=== PATIENT | female | born 1955 | race Caucasian/White ===

== ENCOUNTER 2019-09-02 06:44 | Day surgery (SDC) | payer OTHER ==
[2019-08-30 15:44] VITALS: BMI 29.2
[2019-09-02 09:42] VITALS: TEMP 97.9
[2019-09-02 14:59] VITALS: BP 117/57; PULSE 57
--- NOTE | 2019-09-03 18:41 | PATH ---
Surgical Pathology Report Patient Name: JAKUB SHEPHERD [facility]. Rec. #: [id number] /Age/Gender: 1955 (Age: 64) / F Account: [id number] Location: [facility]-ENDOSCOPY Taken: 09/02/2019 Received: 09/02/2019 Reported: 09/03/2019 Physicians: Yessica Stark M.D. Specimen(s) Received A: #1 POLYP CECUM B: #2 POLYP DISTAL ASCENDING COLON C: #3 POLYP SIGMOID Clinical History Adenoma surveillance Postoperative diagnosis: Colon polyps, diverticulosis Final Diagnosis A. #1 POLYP, CECUM, POLYPECTOMY: HYPERPLASTIC POLYP B. #2 POLYP, DISTAL ASCENDING COLON, POLYPECTOMY: TUBULAR ADENOMA. C. #3 POLYP, SIGMOID, POLYPECTOMY: TUBULAR ADENOMA. Electronically Signed Mikki Ledezma M.D. Gross Description A. Received in formalin, labeled "polyp cecum" are 3 porras, irregular portions of soft tissue ranging from 0.3-1.0 cm. in greatest dimension. The specimens are submitted in toto in one cassette. B. Received in formalin, labeled "polyp ascending distal" are 2 porras, irregular portions of soft tissue measuring 0.2 and 0.5 cm. in greatest dimension. The specimens are submitted in toto in one cassette. C. Received in formalin, labeled "polyp sigmoid" is a porras, irregular portion of soft tissue measuring 0.4 cm. in greatest dimension. The specimen is submitted in toto in one cassette. 09/02/2019 saudi09/02/2019
== END 2019-09-02 10:36 | disposition home or self-care (01) ==
LOC: JASU-ENDO 06:44
PROVIDERS: ATTEND Internal Medicine Gastroenterology
PROC: 0DBN8ZX Excision of Sigmoid Colon, Via Natural or Artificial Opening Endoscopic, Diagnostic (ICD-10-PCS; 2019-09-02)
PROC: 0DBH8ZX Excision of Cecum, Via Natural or Artificial Opening Endoscopic, Diagnostic (ICD-10-PCS; 2019-09-02)
PROC: 0DBK8ZX Excision of Ascending Colon, Via Natural or Artificial Opening Endoscopic, Diagnostic (ICD-10-PCS; principal; 2019-09-02 08:00)
DX: Z12.11 Encounter for screening for malignant neoplasm of colon (principal); Z86.010 Personal history of colon polyps; K64.8 Other hemorrhoids; K57.30 Diverticulosis of large intestine without perforation or abscess without bleeding; D12.2 Benign neoplasm of ascending colon; D12.0 Benign neoplasm of cecum; D12.5 Benign neoplasm of sigmoid colon
CPT/HCPCS: 88305-TC